=== PATIENT | male | born 1955 | race Caucasian/White ===

== ENCOUNTER 2024-09-14 10:41 | Outpatient (CLI) | payer OTHER, SELFPAY ==
--- NOTE | ~2024-09-14 | MR_ITS ---
MRI of the lumbar spine Clinical History: Back pain Technique: Axial T2-weighted images, and sagittal T1-weighted, T2-weighted, and T2 fat-sat images wer e acquired. Findings: No acute fracture seen. There is minimal grade 1 anterolisthesis of L2 over L3, and of L3 o chen L4. No suspicious bone marrow signal abnormality seen. At L1-L2, there is advanced degenerative disc narrowing. There is no significant disc bulge or hernia tion. No spinal canal stenosis or neural foraminal narrowing. At L2-L3, there is mild disc bulge. No spinal canal stenosis or neural foraminal narrowing. At L3-L4, there is moderate degenerative disc narrowing. There is minimal disc bulge. No spinal canal stenosis or neural foraminal narrowing. At L4-L5, there is advanced degenerative disc narrowing. There is minimal disc bulge. No spinal canal stenosis or neural foraminal narrowing. At L5-S1, there is diffuse disc bulge. No spinal canal stenosis. There is moderate to advanced left n eural foraminal narrowing. There is minimal right neural foraminal narrowing. Paravertebral soft tissues are unremarkable. Impression: Mild to [id number] degenerative spondylosis overall, worst at L5-S1. Please see details above. Reviewed, dictated and finalized at location . Impression: Mild to [id number] degenerative spondylosis overall, worst at L5-S1. Plea se see details above.
== END 2024-09-14 10:42 | disposition home or self-care (01) ==
LOC: MICIMG 10:47
PROVIDERS: PCP Internal Medicine
DX: M47.897 Other spondylosis, lumbosacral region (principal)
CPT/HCPCS: 72148